=== PATIENT | female | born 1950 | race Caucasian/White ===

== ENCOUNTER 2017-07-31 08:01 | Inpatient (IN) | payer MEDICAID ==
[2017-07-31] MEDS ORDERED: OLANZapine DISINTEGR 10 MG TAB PO PRN (11:32)
[2017-07-31] MEDS ORDERED: MAG HYDROX/AL HYDROX/SIMETH 30 ML UDCUP PO PRN (11:32)
--- NOTE | 2017-07-31 15:12 | BAPA ---
[f rep st] ADMISSION PSYCHIATRIC ASSESSMENT DATE OF SERVICE: 07/31/2017 CHIEF COMPLAINT: "I don't know why I am here, but I'm glad it is not as cold." HISTORY OF PRESENT ILLNESS: The patient is a 66-year-old female with a history of bipolar disorder. She was admitted through a rather circuitous route, having left her home at an [facility] and going to the emergency department. The timeline is very unclear to me, but she ifeanyi arently had a seizure at some time in the recent past, followed by an acute mental status change caus ed either by the epileptic event or medications used to treat it, [facility], and then transferred to hospice. She then was returned from hospice to the emergency department due to psychiatric complaints. She has a history of bipolar disorder in past, has had psychotic episodes, primarily depressive, and they were concerned that this is what w as occurring now. Also apparently acknowledged that she was not a hospice patient and that this was a mistake. She was making numerous what appeared to be delusional statements. These included believ ing that she was at a "research place" either at the hospice or at the hospital. She also stated stephanie t God and the Bruxie are waiting for her and that she herself was God. She stated that carmen childs was " with poison babies" and that she wanted them removed. She also believed that people were trying to attack her and perhaps detonate bombs around her. She in the past has been aggressive physically with staff during these episodes, per her 's report, but she was generally pleasan t and cooperative there and has been with us so far here. To me today she states that she does not k now why she was taken to the hospital and does not remember many aspects of the situation. She state s that she remembers being very cold and that they were lying to her, saying that the heat was on, bu t she could see the switch was in air conditioning mode. She believes they may have been trying to k ill her. She states that she believes she is on a mission for the Bruxie, but is not spec [facility] about what this might be. She does not believe she has any psychiatric problems and states she has been stable on her medications for some time, including the Depakote, but that she has not been t aking enough because "I take a surprisingly high amount." She again was pleasant and cooperative wit h me, though not able to really give any factual information. She is agreeable to be back on the Dep akote and stated that she felt this was the best medication for her. PAST PSYCHIATRIC HISTORY: The patient states that she has been on Depakote "for 50 years." She ofte n uses the timeframe of 50 years to answer many questions, seemingly to mean a long time. She cannot remember the names of medicine she has been on before, nor can she remember who prescribes her medic brian at this time. She believes that "they just send them to the home and I get them." [facility] Crisis Team reported that she had been treated for psychosis and PTSD in the past, and that she has been treated at [facility] since 2011. They reported that she spring s been on multiple different antipsychotics over the years, but has not been seen since March. The staff at the hospice indicated that they noticed that she had been agitated, delusional, an d was not sleeping. ALLERGIES: No known medical allergies. CURRENT MEDICATIONS: Include enteric-coated aspirin 81 mg daily, carvedilol 6.25 mg daily, Plavix 75 mg daily, Depakote ER 1250 mg at h.s., Pepcid 20 mg twice daily, lisinopril 5 mg daily, Senokot 1 da kaylah, and spironolactone 25 mg daily. PAST MEDICAL HISTORY: Significant apparently for congestive heart failure, hypertension, and possibl e epilepsy. She also has a pacemaker, chronic urinary incontinence, and some cellulitis. SOCIAL HISTORY: The patient states she has been for over 50 years. She states that her husb and "is a stupid man and a drunk." She states that they did not have any children "because I did not want to spread his genes." She states that her has been a heavy drinker throughout their ma rriage and that he is currently residing "in the drunk tank." She states that she had to go to a [facility] home after her heart problems and that her "drank away our house" and became homeless. She reports not liking living in what she describes as a "jail" and that her is only allowed to visit and does not live there with her. Other information indicated that they both live t ren[place] in an assisted living facility. 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 FAMILY HISTORY: The patient states she has an uncle with history of depression and epilepsy. The pa nicolas's mother had depression. Her father was alcoholic. ADMISSION LABORATORY: No additional labs were drawn. Labs from [facility] were review ed with me via telephone and no significant abnormalities were noted. MENTAL STATUS EXAMINATION: Reveals a small, frail-appearing female who appears older than her stated age. She is sitting in a wheelchair, wearing hospital garb. She interacts well, maintain ing good eye contact, and displaying a calm and pleasant demeanor. Her affect is euthymic, stable an d appropriate. Her mood is described as "fine." Her thought process is linear at times, but tangent ial at others. Her thought content reveals grandiose and some paranoid delusions. She states that s he is on a mission for [employer]ub [employer] and also some "top general." Other delusional statement s are mentioned above. She denies any auditory, visual or tactile hallucinations. She is alert and oriented to person, place, and situation, though does not know the date or time. She denies any thou ghts of suicide, homicide, or violence. Her insight and judgment appear to be impaired. IMPRESSION: The patient is a pleasant 66-year-old female who presents at this time on segal sfer from [facility] emergency department on an M1 hold after having been taken there from [facility]. The circumstances of her going to hospice are mentioned above, which are very, very strange. Re gardless, she appears to be clear and has no evidence currently of delirium. She is delusional, but at least pleasantly so and is not aggressive. She is agreeable to continuing to take her Depakote an d I will supplement this with a small amount of Zyprexa to hopefully address her delusional processes , and hasten the response of the natasha to the Depakote. PLAN: 1. Admit to the [facility] inpatient unit on an M1 hold. 2. Make medication adjustments as above. 3. Engage in individual, group, and milieu psychotherapies to provide better and clear understanding of her underlying condition and personality. 4. We will maintain on safety precautions as she has been very pleasant and cooperative and showing no signs of aggression at this time. 5. Estimated length of stay is 5-7 days. 6. /[id number]/MODL
[2017-07-31] MEDS: CARVEDILOL 6.25 MG TAB PO SCH (17:40)
[2017-07-31] MEDS: DIVALPROEX ER 250 MG TAB PO SCH (20:07)
--- NOTE | 2017-07-31 20:07 | WOCRNPDOC ---
WOCRN Advanced Assessment Note - Skin Integrity Problem, Advanced Assess Left Heel Dressing Type: Allevyn Life Dressing Description: Clean/Dry, Intact Exudate Amount: Scant Exudate Color: Reddish/Yellow Exudate Characteristic(s): Serosanguinous Integumentary Issue Intervention: Visualized Under Dressing Kena Wound Tissue: Calloused Kena Wound Swelling: None Wound Bed Color: Red Wound Bed Constitution: Red/Bad Axe - Non Granular Tissue, De-roofed Serous Blister Site Measurement - Head-to-Toe Length X Width X Depth (cm): 0.8cmx0.7cmx0.1cm Skin Integrity Problem Comment: Discrete, circular partial-thikness wound on posterior aspect of L heel, appearance consistent w/ de-roofed blister. Wound bed is red, non-granulating tissue. Callous and friable skin periwound, no erythema or swelling. Continue w/ Allevyn Life dressing, w/ Silvasorb wound gel. Left Anterior Ankle Dressing Type: Allevyn Life Dressing Description: Intact Exudate Amount: Minimal Exudate Color: Reddish/Yellow Exudate Characteristic(s): Serosanguinous Integumentary Issue Intervention: Visualized Under Dressing Kena Wound Tissue: Erythema, Swollen Kena Wound Swelling: Moderate Wound Bed Color: Red, Yellow Wound Bed Constitution: Red/Bad Axe - Non Granular Tissue (40%), Loose Slough (60%) Wound Edges: Irregular Site Odor: None Site Measurement - Head-to-Toe Length X Width X Depth (cm): 1cmx2.5cmx0.1cm Skin Integrity Problem Comment: Wound on the anterior aspect of L ankle, at talocrural joint. Patient does not know the etiology of this wound. Presently 60 % loose slough, 40% non-granulating tissue. Erythema and swelling periwound, w/ +2 pitting edema in this extremity. Patient does have edema in other leg as well (+1, pitting), but this extremity is more edematous. Will initiate dressing w/ honey tomorrow to promote autolysis of necrotic tissue. Nursing should continue to monitor for s/sx of cellulitis in surrounding tissues, including increased swelling and erythema, reports of increased pain, and purulent discharge from wound. Recommend elevating both lower legs above heart level using pillows when patient in bed.
[2017-07-31] MEDS: FAMOTIDINE 20 MG TAB PO SCH (20:08)
--- NOTE | 2017-07-31 20:19 | BCON ---
[f rep st] BEHAVIORAL HEALTH CONSULTATION INTERNAL MEDICINE CONSULTATION DATE OF CONSULTATION: 07/31/2017 REFERRING PHYSICIAN: Dr. Guajardo REASON FOR REFERRAL: Medical clearance for inpatient behavioral health stay. HISTORY OF PRESENT ILLNESS: This patient spent several days in the emergency department of [facility], where she was sent from [facility] for behavioral disturbance. She was agitated, and also the emergency department notes report altered mental status. She has also recently had a seizure, though it is unclear from notes exactly when this was. Emergency department evaluation included laboratory studies, and valproic acid was undetectable in her serum initially, but subsequently, after being treated with her regular prescription, her valproic acid level became therapeutic. She had been apparently erroneously placed in hospice and was agitated at the [facility] in [place], which prompted either the initial or subsequent emergency department visit. Eventually, she was evaluated by the mental health team and sent to [facility] for further psychiatric care. The [facility] was refusing readmission for her. PAST MEDICAL HISTORY: 1. Congestive heart failure. 2. Anxiety. 3. Bipolar disorder. 4. Dementia. 5. Dyslipidemia. 6. MRSA. 7. Seizure disorder. PAST SURGICAL HISTORY: She has had pacemaker placement. MEDICATIONS: Prior to admission: 1. Aspirin 81 mg p.o. q. day. 2. Carvedilol 6.25 mg b.i.d. 3. Clopidogrel 75 mg p.o. q. day. 4. Divalproex 1250 mg p.o. q.h.s. 5. Famotidine 20 mg p.o. b.i.d. 6. Probiotic 1 p.o. q. day. 7. Lisinopril 5 mg p.o. q. day. 8. Senna/docusate 1 p.o. q. day. 9. Spironolactone 25 mg p.o. q. day. SOCIAL HISTORY: She is a smoker. She was living at [facility] and was briefly under the care of hospice. FAMILY HISTORY: Noncontributory. REVIEW OF SYSTEMS: She reports that she feels short of breath. She has not been sleeping well, but she thinks she will sleep well tonight. She denies cough. She denies fever or chills. She denies chest pain or palpitations. She denies nausea, vomiting, constipation or diarrhea and has a good appetite. She has some swelling in her legs. She has some pain around the skin ulceration on her left ankle. She typically ambulates with a walker. She denies snoring. Otherwise, a 10-point review of systems is negative. PHYSICAL EXAMINATION: VITAL SIGNS: Blood pressure is 143/68. Heart rate is 90. Respiratory rate is 14. Oxygen saturation is 99% on room air. Her weight is 62.6 kg for a body mass index of 24.4. GENERAL: This is an elderly lady, somewhat unkempt, dressed in a hospital robe, sitting in a chair, cooperative and in no acute distress. HEENT: Extraocular movements are intact. Pupils are equal, round and reactive to light. Mucous membranes are moist. Dentition is in poor condition. She has a moderately crowded airway, Mallampati class 3. NECK: Supple. HEART: There is a regular rate and rhythm with no murmurs, rubs, or gallops. There is jugular venous distention. There is 1+ edema bilaterally to the lower extremities. LUNGS: Clear to auscultation bilaterally. ABDOMEN: Soft, nontender, nondistended, with normoactive bowel sounds. EXTREMITIES: There is no cyanosis or clubbing. Her left great toe crosses over her left 2nd toe. Radial pulses are 2+ bilaterally. Pedal pulses are not detectable. SKIN: There is approximately a 2 x 3 triangular-shaped area of ulceration on the left anterior ankle. There is mild surrounding erythema. There is no purulence. There is scant serosanguineous discharge on the bandage. There is a very small ulceration on the left heel, again with serosanguineous drainage on the bandage. There is no purulence. NEUROLOGIC: She is alert and oriented x3. Cranial nerves 2-12 are grossly intact. There is no focal weakness. Sensation is intact to light touch. Deep tendon reflexes are 2+ bilaterally at the biceps, patellar, and Achilles tendons. She is able to arise from the chair by pushing on the arms of the chair and ambulates with a wide-based gait using a front-wheeled walker. Time to get up and go is approximately 30 seconds. LABORATORY STUDIES: From the emergency department in [place]: On 07/30, serum valproic acid level was 65.8. Urine drug screen was positive for opiates but otherwise negative for any substances of abuse. Urinalysis showed 6-10 white blood cells, 1+ bacteria, and 6-10 squamous epithelial cells; there were small leukocyte esterase and trace blood. Acetaminophen level was undetectable. TSH was normal at 2.05. Valproic acid level was initially undetectable on 2017 and, subsequently, therapeutic on 07/30/2017. Salicylate level was nontoxic at 1.2. Serum chemistry revealed normal renal function and electrolytes. Glucose was slightly elevated at 105, but this was likely nonfasting. Liver function tests showed a low albumin at 3.1 and, otherwise, were within normal limits. CBC showed mild anemia with a hemoglobin of 11.7 and a hematocrit of 36.1, MCV was normal at 93, RDW was elevated, platelet count was normal at 2.77. ASSESSMENT AND RECOMMENDATIONS: 1. Mental health issues with recent agitation and altered mental status, pending further evaluation and management per Psychiatry and the mental health team. 2. Congestive heart failure appears to be compensated, not requiring any oxygen. Would continue current medications with carvedilol, spironolactone, and lisinopril. 3. Coronary artery disease. She reports a history of myocardial infarction x4. Continue aspirin. 4. Peripheral vascular disease with absent pulses bilaterally in her feet. Would continue clopidogrel, as well as the aspirin. 5. Skin ulcers on the left foot. Unclear whether this is an abrasion versus an arterial ulcer. It is somewhat painful. It does not appear infected. For now, agree with the Allevyn dressings, and she will be seen by the wound care nurse today. 6. Hypertension appears to be adequately controlled. 7. Anemia, possibly of chronic disease, possibly nutritional with a low albumin. If she is to remain on the inpatient behavioral health unit for days into weeks, it would be worthwhile to follow up. Otherwise, she can follow up as an outpatient. If repeat labs are done here, would add an iron panel. 8. Gait disturbance and fall risk. Fall risk is elevated due to her very slow time to get up and go test. Physical therapy evaluation has been ordered, which is appropriate. 9. Question of dementia. She is alert and oriented, though she appears somewhat delusional and is a poor historian, in particular discussing that the or first assist registered nurse who shocked and restarted her heart was a general ( unclear whether this might be the case or not). There is a report in the paperwork from the outside hospital of a [facility] mental status test of , which is in the dementia range; however, she also might have been delirious, having had a seizure and with questionable compliance with her medications at that time. Consider further neuropsychological testing either as an outpatient or through Speech Therapy if she appears to have significant cognitive impairment while she is on the unit. I see no medical contraindications to this patient's continued stay on the inpatient behavioral health unit or to any psychiatric medications or procedures. Thank you very much for including me in the care of this patient, and please do not hesitate to contact me or the hospitalist service should there be need for further medical evaluation. /[id number]/MODL MTDD
[2017-07-31] MEDS: LORazepam 0.5 MG TAB PO PRN (20:20)
[2017-08-01] MEDS: LORazepam 0.5 MG TAB PO PRN ×2 (02:21→21:04)
[2017-08-01] MEDS: FAMOTIDINE 20 MG TAB PO SCH ×2 (08:21→21:05)
[2017-08-01] MEDS: ASPIRIN EC 81 MG TAB PO SCH (08:21)
[2017-08-01] MEDS: SPIRONOLACTONE 25 MG TAB PO SCH (08:21)
[2017-08-01] MEDS: SENNOSIDES/DOCUSATE SODIUM TAB PO SCH (08:21)
[2017-08-01] MEDS: CLOPIDOGREL BISULFATE 75 MG TAB PO SCH (08:21)
[2017-08-01] MEDS: CARVEDILOL 6.25 MG TAB PO SCH ×2 (08:21→17:13)
[2017-08-01] MEDS: LISINOPRIL 5 MG TAB PO SCH (08:21)
--- NOTE | 2017-08-01 14:19 | SOAPPROG ---
SOAP Progress Note Assessment/Plan: Assessment: Plan: 08/01/17 14:17 Psychosis: Remains delusional. Will start on scheduled Zyprexa. Subjective: Pt seen, discussed with staff. Did not sleep at all last night. Was reported to be more irritable last night. She states she was cold and that the mattress was too hard. Slept about two hours this morning on the couch in the day room. Compliant with treatments and medications though is resistant to wound care. Objective: Vital Signs Temp Pulse Resp BP Pulse Ox 36.4 C 103 H 17 120/56 L 96 08/01/17 06:00 08/01/17 06:00 08/01/17 06:00 08/01/17 06:00 08/01/17 06:00 - Time Spent With Patient Time Spent With Patient: 25" ICD10 Worksheet Patient Problems: Problems Problem Status Onset Bipolar I disorder, most recent episode manic, severe with psychotic features Acute - ICD10 Problem Qualifiers (1) Bipolar I disorder, most recent episode manic, severe with psychotic features
[2017-08-01] MEDS: DIVALPROEX ER 250 MG TAB PO SCH (21:05)
[2017-08-02] MEDS: LORazepam 0.5 MG TAB PO PRN ×2 (04:17→20:45)
[2017-08-02] MEDS: CLOPIDOGREL BISULFATE 75 MG TAB PO SCH (09:02)
[2017-08-02] MEDS: ASPIRIN EC 81 MG TAB PO SCH (09:02)
[2017-08-02] MEDS: CARVEDILOL 6.25 MG TAB PO SCH ×2 (09:02→17:12)
[2017-08-02] MEDS: SPIRONOLACTONE 25 MG TAB PO SCH (09:02)
[2017-08-02] MEDS: FAMOTIDINE 20 MG TAB PO SCH ×2 (09:02→20:38)
[2017-08-02] MEDS: LISINOPRIL 5 MG TAB PO SCH (09:03)
[2017-08-02] MEDS: SENNOSIDES/DOCUSATE SODIUM TAB PO SCH (10:52)
--- NOTE | 2017-08-02 14:06 | SOAPPROG ---
SOAP Progress Note Assessment/Plan: Assessment: Plan: 08/01/17 14:17 Psychosis: Remains delusional. Will start on scheduled Zyprexa. 08/02/17 14:06 Psychosis/Bipolar D/o: Continues to sleep poorly. Need to see this improved if overall clinical picture is to improve. Will start scheduled Zyprexa at HS. Subjective: Pt seen, discussed with staff. Reports feeling "cold and tired." Did not sleep again last night, up in the day room mostly. Remains intermittently irritable, disorganized. Continues to refuse to sleep in bed due to c/o of mattress being too hard and the sheets somehow pulling at her clothes. Objective: Vital Signs Temp Pulse Resp BP Pulse Ox 36.4 C 98 14 120/58 L 99 08/02/17 06:00 08/02/17 09:02 08/02/17 06:00 08/02/17 09:03 08/02/17 06:00 MSE: Calm, coop. Noted to be sleeping in the day room, slumped over on the couch. Easily awakened. Recognizes me. Pleasant and interactive. Affect is constricted, stable. Mood is "bad." TP linear for brief periods, then derails. 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 - Time Spent With Patient Time Spent With Patient: 15" ICD10 Worksheet Patient Problems: Problems Problem Status Onset Bipolar I disorder, most recent episode manic, severe with psychotic features Acute - ICD10 Problem Qualifiers (1) Bipolar I disorder, most recent episode manic, severe with psychotic features
[2017-08-02] MEDS: DIVALPROEX ER 250 MG TAB PO SCH (20:38)
[2017-08-02] MEDS ORDERED: OLANZapine DISINTEGR 5 MG TAB PO SCH (21:00)
[2017-08-03] MEDS: OLANZapine DISINTEGR 5 MG TAB PO PRN (02:08)
[2017-08-03] MEDS: LORazepam 0.5 MG TAB PO PRN ×3 (03:31→21:21)
[2017-08-03] MEDS: FAMOTIDINE 20 MG TAB PO SCH ×2 (09:07→20:30)
[2017-08-03] MEDS: ASPIRIN EC 81 MG TAB PO SCH (09:07)
[2017-08-03] MEDS: LISINOPRIL 5 MG TAB PO SCH (09:07)
[2017-08-03] MEDS: CLOPIDOGREL BISULFATE 75 MG TAB PO SCH (09:07)
[2017-08-03] MEDS: SPIRONOLACTONE 25 MG TAB PO SCH (09:07)
[2017-08-03] MEDS: CARVEDILOL 6.25 MG TAB PO SCH ×2 (09:08→17:35)
[2017-08-03] MEDS: SENNOSIDES/DOCUSATE SODIUM TAB PO SCH (09:16)
--- NOTE | 2017-08-03 15:37 | SOAPPROG ---
SOAP Progress Note Assessment/Plan: Assessment: Plan: 08/01/17 14:17 Psychosis: Remains delusional. Will start on scheduled Zyprexa. 08/02/17 14:06 Psychosis/Bipolar D/o: Continues to sleep poorly. Need to see this improved if overall clinical picture is to improve. Will start scheduled Zyprexa at HS. 08/03/17 15:41 Psychosis/Bipolar D/o: No inroads on the sleep issue. Will CCM inc: Zyprexa and VPA. Try air mattress. Subjective: Pt seen, discussed with staff. Continues to refuse to sleep in her room and, in fact, hasn't slept more than two hours since arriving. She agrees to at least try to lay down in her bed if we can get her an air mattress. Objective: Vital Signs Temp Pulse Resp BP Pulse Ox 36.3 C 96 16 121/58 H 97 08/03/17 06:00 08/03/17 09:08 08/03/17 06:00 08/03/17 09:08 08/03/17 06:00 MSE: Tense, guarded. Interacts appropriately with good eye contact, pleasant demeanor. Affect is constricted, stable, somewhat irritable. Mood is "not good." TP generally linear. TC reveals continued paranoid and grandiose delusions. - Time Spent With Patient Time Spent With Patient: 15" ICD10 Worksheet Patient Problems: Problems Problem Status Onset Bipolar I disorder, most recent episode manic, severe with psychotic features Acute - ICD10 Problem Qualifiers (1) Bipolar I disorder, most recent episode manic, severe with psychotic features
[2017-08-03] MEDS: DIVALPROEX ER 250 MG TAB PO SCH (20:30)
[2017-08-03] MEDS: OLANZapine DISINTEGR 5 MG TAB PO SCH (20:31)
[2017-08-04] MEDS: OLANZapine DISINTEGR 5 MG TAB PO PRN ×2 (01:09→23:25)
[2017-08-04] MEDS: ACETAMINOPHEN 325 MG TAB PO PRN ×2 (01:09→23:25)
[2017-08-04] MEDS: LORazepam 0.5 MG TAB PO PRN ×2 (03:08→23:26)
[2017-08-04] MEDS: LISINOPRIL 5 MG TAB PO SCH (08:27)
[2017-08-04] MEDS: FAMOTIDINE 20 MG TAB PO SCH ×2 (08:42→20:26)
[2017-08-04] MEDS: CLOPIDOGREL BISULFATE 75 MG TAB PO SCH (08:42)
[2017-08-04] MEDS: CARVEDILOL 6.25 MG TAB PO SCH ×2 (08:43→18:15)
[2017-08-04] MEDS: ASPIRIN EC 81 MG TAB PO SCH (08:50)
[2017-08-04] MEDS: SPIRONOLACTONE 25 MG TAB PO SCH (08:51)
--- NOTE | 2017-08-04 16:08 | SOAPPROG ---
SOAP Progress Note Assessment/Plan: Assessment: 66yo CF with long hx BMD, MRE manic/psychotic, also with chronic medical problems 08/04/17 16:05 slept 1hr last night. had transferred to ER after MN after fall, sustained lip lac and did not require sutures. pt states she is "fine now". attributed fall to her bed being "so high" and she had trouble getting out of bed to her walker, slipped despite wearing hospital socks. 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 Wants to return to [facility] and have more Depakote. states still can't sleep, but thinks meds helped a little. received prn Ativan and prn zyprexa earlier at night. reports hx of nocturia, and staff report occasional incontinence. denied s/e to zyprexa or depakote. denied any sxs suggestive of orthostasis. staff report pt hydrating well. conversant. mildly irritable. fair eye contact. swollen upper lip with some dried blood. mood "fine now", denied feeling depressed. denied any ah, but reports +VH of "a few scary faces at night, monster faces", + paranoia regarding unit as noted. did not appear responding to internal stim. i/j impaired. a/p: cont current meds incl VPA, Zyprexa, prn ativan check UA, r/o UTI instructed pt to avoid HS fluid intake now without air mattress, continues on fall risk precautions no hospital beds allowed on unit f/u with PT for recommendations Objective: Vital Signs Temp Pulse Resp BP Pulse Ox 36.3 C 105 H 10 L 129/73 H 100 08/04/17 06:00 08/04/17 08:49 08/04/17 08:49 08/04/17 08:49 08/04/17 08:49 - Time Spent With Patient Time Spent With Patient: 35min - Pending Discharge Pending Discharge Within 24 Hours: No Pending Discharge Within 48 Hours: No ICD10 Worksheet Patient Problems: Problems Problem Status Onset Bipolar I disorder, most recent episode manic, severe with psychotic features Acute
[2017-08-04] MEDS: OLANZapine DISINTEGR 5 MG TAB PO SCH (20:25)
[2017-08-04] MEDS: DIVALPROEX ER 250 MG TAB PO SCH (20:25)
[2017-08-05] MEDS: SENNOSIDES/DOCUSATE SODIUM TAB PO PRN (00:57)
[2017-08-05] MEDS: MAGNESIUM HYDROXIDE 30 ML UDCUP PO PRN (02:16)
[2017-08-05] MEDS: LORazepam 0.5 MG TAB PO PRN ×2 (05:24→22:22)
[2017-08-05] MEDS: OLANZapine DISINTEGR 5 MG TAB PO PRN (05:25)
[2017-08-05] MEDS: CLOPIDOGREL BISULFATE 75 MG TAB PO SCH (09:42)
[2017-08-05] MEDS: CARVEDILOL 6.25 MG TAB PO SCH ×3 (09:42→17:20)
[2017-08-05] MEDS: FAMOTIDINE 20 MG TAB PO SCH ×2 (09:42→20:48)
[2017-08-05] MEDS: SPIRONOLACTONE 25 MG TAB PO SCH (09:43)
[2017-08-05] MEDS: LISINOPRIL 5 MG TAB PO SCH ×2 (09:44→09:51)
[2017-08-05] MEDS: ASPIRIN EC 81 MG TAB PO SCH (09:54)
[2017-08-05] MEDS: ACETAMINOPHEN 325 MG TAB PO PRN (13:52)
[2017-08-05] MEDS: OLANZapine DISINTEGR 5 MG TAB PO SCH (20:48)
[2017-08-05] MEDS: DIVALPROEX ER 250 MG TAB PO SCH ×2 (20:48→20:54)
--- NOTE | 2017-08-05 21:40 | SOAPPROG ---
SOAP Progress Note Assessment/Plan: Assessment: 66yo CF with long hx BMD, MRE manic/psychotic, also with chronic medical problems 08/04/17 16:05 slept 1hr last night. had transferred to ER after MN after fall, sustained lip lac and did not require sutures. pt states she is "fine now". attributed fall to her bed being "so high" and she had trouble getting out of bed to her walker, slipped despite wearing hospital socks. 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 Wants to return to [facility] and have more Depakote. states still can't sleep, but thinks meds helped a little. received prn Ativan and prn zyprexa earlier at night. reports hx of nocturia, and staff report occasional incontinence. denied s/e to zyprexa or depakote. denied any sxs suggestive of orthostasis. staff report pt hydrating well. conversant. mildly irritable. fair eye contact. swollen upper lip with some dried blood. mood "fine now", denied feeling depressed. denied any ah, but reports +VH of "a few scary faces at night, monster faces", + paranoia regarding unit as noted. did not appear responding to internal stim. i/j impaired. a/p: cont current meds incl VPA, Zyprexa, prn ativan check UA, r/o UTI instructed pt to avoid HS fluid intake now without air mattress, continues on fall risk precautions no hospital beds allowed on unit f/u with PT for recommendations 08/05/17 19:21 slept 1.5hr incr irritable today per staff. On eval, asks for Risperdal b/c was on this since age 15, and less ativan, and wants 4mg Trilafon. States is and will refuse Depakote b/c it causes her to see "pictures in my mind of ugly, scary faces" to her left, and "block of light" on her right, and "crawling up the wall" sensation. Also c/o "hard bed, cold room ". Denied any other physical complaints. RLE swollen but per staff, wounds appearing improved and RLE has been larger than LLE at baseline, but both legs seem more edematous over past couple of days since has been without elevating legs in bed. Pt denied any LE pain No urinary incont reported today per staff. UA noted with 3+LE. Lab reports urine about 24hr old and ideally recheck to have accurate culture since not part of original order. Will recheck UA w/culture if indicated. Atty visited yesterday. Pt remains on 1:1 for safety/fall risk. Pt has been taking VPA, despite her reporting she will refuse. Cont with Zyprexa and prns. Will leave zyprexa at 10mg since on this dose only since 08/03. has prn available. If not helpful for mood/sleep, coould further increase or consider change, pt mentioned risperdal, also concerns for potential of incr weight on zyprexa Staff obtained W/C from rehab with leg extenders to help pt with elevating legs , altho will need ideally to do so above level of heart while resting in bed. Chem with Na 132. drinking a lot of fluid and urinating freq. Will f/u and recheck in AM to check trend. Will request hospitalist f/u w/pt tomorrow to reassess BLE and make recs regarding r/o UTI Objective: Vital Signs Temp Pulse Resp BP Pulse Ox 36.6 C 103 H 16 107/59 L 99 08/05/17 16:00 08/05/17 16:00 08/05/17 16:00 08/05/17 16:00 08/05/17 16:00 Laboratory Results 08/05/17 06:00 - Time Spent With Patient Time Spent With Patient: 20min - Pending Discharge Pending Discharge Within 24 Hours: No Pending Discharge Within 48 Hours: No ICD10 Worksheet Patient Problems: Problems Problem Status Onset Bipolar I disorder, most recent episode manic, severe with psychotic features Acute
[2017-08-05] MEDS ORDERED: OLANZapine 5 MG TAB PO ONE (21:47)
[2017-08-06] MEDS: ACETAMINOPHEN 325 MG TAB PO PRN ×3 (00:40→18:39)
[2017-08-06] MEDS: OLANZapine DISINTEGR 5 MG TAB PO PRN ×2 (02:34→06:46)
[2017-08-06] MEDS: LORazepam 0.5 MG TAB PO PRN (06:47)
[2017-08-06] MEDS: FAMOTIDINE 20 MG TAB PO SCH ×2 (09:02→19:49)
[2017-08-06] MEDS: SPIRONOLACTONE 25 MG TAB PO SCH (09:02)
[2017-08-06] MEDS: CLOPIDOGREL BISULFATE 75 MG TAB PO SCH (09:02)
[2017-08-06] MEDS: CARVEDILOL 6.25 MG TAB PO SCH ×2 (09:02→18:30)
[2017-08-06] MEDS: ASPIRIN EC 81 MG TAB PO SCH (09:03)
[2017-08-06] MEDS: LISINOPRIL 5 MG TAB PO SCH (09:03)
--- NOTE | 2017-08-06 13:23 | SOAPPROG ---
SOAP Progress Note Assessment/Plan: Assessment: Plan: 08/01/17 14:17 Psychosis: Remains delusional. Will start on scheduled Zyprexa. 08/02/17 14:06 Psychosis/Bipolar D/o: Continues to sleep poorly. Need to see this improved if overall clinical picture is to improve. Will start scheduled Zyprexa at HS. 08/03/17 15:41 Psychosis/Bipolar D/o: No inroads on the sleep issue. Will [facility] inc: Zyprexa and VPA. Try air mattress. 08/06/17 13:25 Psychosis/Bipolar D/o: Largely the same. Will increase Zyprexa to 15mg. Hope to see sleep come around as a harbinger of mood stabilization. Pt asks to change to Risperdal and perphenazine. These are not as effective as antimanics , so will stay with Zyprexa for now. Will ask Dr. Bustillos to look in on leg. Wounds appear better, but her edema is increasing. Subjective: Pt seen, discussed with staff. Reports feeling "mad" that she is in the hospital. States, "I could sleep just fine if I was at home." I reminded her that her lack of sleep was a primary reason she was admitted, but she denies this. She continues to c/o uncomfortable bed. Sleeping < 3 hours per night. C /o pain in her right leg and foot. Staff notes that she continues to compulsively pick at her wounds. She also fell out of bed over the WE and suffered an injury to her upper lip. This was evaluated in the ED and is being managed supportively. She has been noted to pick at this as well causing it to bleed. She is now on 1:1 due to the picking and her insistence on getting out of her chair abruptly, increasing her fall risk. Remains compliant with meds. Continues to resist elevating legs. Objective: Vital Signs Temp Pulse Resp BP Pulse Ox 36.6 C 110 H 12 115/62 99 08/05/17 16:00 08/06/17 09:02 08/06/17 08:58 08/06/17 09:03 08/06/17 08:58 Laboratory Results 08/06/17 05:45 MSE: Poorly groomed, calm, coop. Affect is constricted, though she does smile appropriately at times. Her mood is "bad." TP is generally linear. TC reveals ongoing paranoia that she is being monitored by the [facility] and several male patients are imposters sent there to [place] her. Also continues to voice hyperreligious delusions. - Time Spent With Patient Time Spent With Patient: 25" ICD10 Worksheet Patient Problems: Problems Problem Status Onset Bipolar I disorder, most recent episode manic, severe with psychotic features Acute - ICD10 Problem Qualifiers (1) Bipolar I disorder, most recent episode manic, severe with psychotic features
--- NOTE | 2017-08-06 13:48 | SOAPPROG ---
SOAP Progress Note Assessment/Plan: Assessment: 1. Wound left anterior ankle. Healing. Continue current dressings. If she is intolerant of the tape on the even bandage, changed to a nonstick dressing held in place with Kerlix. Continue honey to wound as per instructions of wound care nurse. 2. Edema and CHF. She also had tachycardia and BUN/creatinine ratio is greater 20 and higher than it was several days ago implying possible dehydration. Added on BNP as well as LFTs to labs that were drawn today. 3. Hyperkalemia, minor. Unclear etiology though it might be related to Fab inhibitor as well as spironolactone. Await labs. Most likely will simply recheck in the morning. 08/06/17 13:44 Subjective: Follow-up on wound on the left anterior ankle. She says she removed her bandages because the tape was bothering her. Staff reports that she was digging at the wound with finger. Objective: Vital Signs Temp Pulse Resp BP Pulse Ox 36.6 C 110 H 12 115/62 99 08/05/17 16:00 08/06/17 09:02 08/06/17 08:58 08/06/17 09:03 08/06/17 08:58 Laboratory Results 08/06/17 05:45 Physical Exam - Physical Exam General Appearance: WD/WN, alert, no apparent distress Respiratory: normal breath sounds, No crackles, No rhonchi, No wheezing Cardiac/Chest: regular rate, rhythm, edema (2+ bilateral lower extremities left greater than right, pretibial), No gallop, No JVD, No diastolic murmur, No systolic murmur Skin: other (Wound on left anterior ankle with healing around the edges. Continues to have open area with slough central approximately 1/2 by 1 cm. ) ICD10 Worksheet Patient Problems: Problems Problem Status Onset Bipolar I disorder, most recent episode manic, severe with psychotic features Acute
[2017-08-06] MEDS: DIVALPROEX ER 250 MG TAB PO SCH (19:49)
[2017-08-06] MEDS: OLANZapine DISINTEGR 10 MG TAB PO SCH (19:49)
[2017-08-06] MEDS ORDERED: OLANZapine 10 MG TAB PO SCH (21:00)
[2017-08-06] MEDS ORDERED: oxyCODONE IR 5 MG TAB PO ONE (21:15)
[2017-08-07] MEDS: FUROSEMIDE 20 MG TAB PO SCH (08:15)
[2017-08-07] MEDS: CARVEDILOL 6.25 MG TAB PO SCH ×2 (08:15→19:17)
[2017-08-07] MEDS: SPIRONOLACTONE 25 MG TAB PO SCH (08:15)
[2017-08-07] MEDS: CLOPIDOGREL BISULFATE 75 MG TAB PO SCH (08:15)
[2017-08-07] MEDS: ASPIRIN EC 81 MG TAB PO SCH (08:16)
[2017-08-07] MEDS: LISINOPRIL 5 MG TAB PO SCH (08:16)
[2017-08-07] MEDS: FAMOTIDINE 20 MG TAB PO SCH ×2 (08:16→19:15)
--- NOTE | 2017-08-07 14:21 | WOCRNPDOC ---
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 Per Dr. Bustillos's report, patient removed previous dressing because she didn't like the "tape" border. Modified dressing change order today so that there is nothing adherent: Therahoney gel, non-adherent pad, and stretch-net to secure. Hopefully this will work better for her. Wound RN will round again on to assess.
[2017-08-07] MEDS: OLANZapine DISINTEGR 10 MG TAB PO SCH (19:14)
[2017-08-07] MEDS: DIVALPROEX ER 250 MG TAB PO SCH (19:14)
[2017-08-07] MEDS: LORazepam 0.5 MG TAB PO PRN (21:34)
[2017-08-07] MEDS: OLANZapine DISINTEGR 5 MG TAB PO PRN (21:34)
--- NOTE | 2017-08-07 21:39 | SOAPPROG ---
SOAP Progress Note Assessment/Plan: Assessment: Plan: 08/01/17 14:17 Psychosis: Remains delusional. Will start on scheduled Zyprexa. 08/02/17 14:06 Psychosis/Bipolar D/o: Continues to sleep poorly. Need to see this improved if overall clinical picture is to improve. Will start scheduled Zyprexa at HS. 08/03/17 15:41 Psychosis/Bipolar D/o: No inroads on the sleep issue. Will [facility] inc: Zyprexa and VPA. Try air mattress. 08/06/17 13:25 Psychosis/Bipolar D/o: Largely the same. Will increase Zyprexa to 15mg. Hope to see sleep come around as a harbinger of mood stabilization. Pt asks to change to Risperdal and perphenazine. These are not as effective as antimanics , so will stay with Zyprexa for now. Will ask Dr. Bustillos to look in on leg. Wounds appear better, but her edema is increasing. 08/07/17 21:38 Psychosis/Idania: Improving. Sleep is stabilizing. Expect to see significant improvement in next 1-2 days. Medical condition is stable, though her labs indicate significant CHF. This is not a new finding but has bearing on her peripheral edema. I examined her LE's and noted them to be less edematous. Wounds look much better. [facility]. Subjective: Pt seen, discussed with staff. Wound care and Dr. Bustillos's notes reviewed and appreciated. Appropriately conversant with me today. States her leg pain is gone. Abnormal lab results noted. Compliant with meds. Slept >6 hours last night in her own bed. Objective: Vital Signs Temp Pulse Resp BP Pulse Ox 36.6 C 100 16 96/55 L 98 08/07/17 06:00 08/07/17 20:02 08/07/17 20:02 08/07/17 20:02 08/07/17 20:02 Microbiology 08/05/17 22:00 Urine Culture - Final Urine,Clean Catch Escherichia Coli Three [place] Types Laboratory Results 08/07/17 06:20 MSE: Poorly groomed, coop. Affect is blunted, stable, approp. Mood is "not too good." TP abbreviated, but linear and goal-directed to my questioning. TC reveals no mention of paranoid thoughts to me. A&Ox4. No evidence of delirium. - Time Spent With Patient Time Spent With Patient: 15" ICD10 Worksheet Patient Problems: Problems Problem Status Onset Bipolar I disorder, most recent episode manic, severe with psychotic features Acute - ICD10 Problem Qualifiers (1) Bipolar I disorder, most recent episode manic, severe with psychotic features
[2017-08-07] MEDS: ACETAMINOPHEN 325 MG TAB PO PRN (22:19)
[2017-08-08] MEDS: ACETAMINOPHEN 500 MG TAB PO PRN (00:52)
[2017-08-08] MEDS: MAGNESIUM HYDROXIDE 30 ML UDCUP PO PRN (02:35)
[2017-08-08] MEDS: OLANZapine DISINTEGR 5 MG TAB PO PRN ×2 (03:06→19:28)
[2017-08-08] MEDS: LORazepam 0.5 MG TAB PO PRN ×2 (04:35→19:28)
[2017-08-08] MEDS: CARVEDILOL 6.25 MG TAB PO SCH ×2 (08:25→18:23)
[2017-08-08] MEDS: SPIRONOLACTONE 25 MG TAB PO SCH (08:25)
[2017-08-08] MEDS: CLOPIDOGREL BISULFATE 75 MG TAB PO SCH (08:25)
[2017-08-08] MEDS: LISINOPRIL 5 MG TAB PO SCH (08:25)
[2017-08-08] MEDS: ASPIRIN EC 81 MG TAB PO SCH (08:25)
[2017-08-08] MEDS: FAMOTIDINE 20 MG TAB PO SCH ×2 (08:25→18:25)
[2017-08-08] MEDS: FUROSEMIDE 20 MG TAB PO SCH (08:26)
--- NOTE | 2017-08-08 12:44 | SOAPPROG ---
SOAP Progress Note Assessment/Plan: Assessment: Plan: 08/01/17 14:17 Psychosis: Remains delusional. Will start on scheduled Zyprexa. 08/02/17 14:06 Psychosis/Bipolar D/o: Continues to sleep poorly. Need to see this improved if overall clinical picture is to improve. Will start scheduled Zyprexa at HS. 08/03/17 15:41 Psychosis/Bipolar D/o: No inroads on the sleep issue. Will [facility] inc: Zyprexa and VPA. Try air mattress. 08/06/17 13:25 Psychosis/Bipolar D/o: Largely the same. Will increase Zyprexa to 15mg. Hope to see sleep come around as a harbinger of mood stabilization. Pt asks to change to Risperdal and perphenazine. These are not as effective as antimanics , so will stay with Zyprexa for now. Will ask Dr. Bustillos to look in on leg. Wounds appear better, but her edema is increasing. 08/07/17 21:38 Psychosis/Idania: Improving. Sleep is stabilizing. Expect to see significant improvement in next 1-2 days. Medical condition is stable, though her labs indicate significant CHF. This is not a new finding but has bearing on her peripheral edema. I examined her LE's and noted them to be less edematous. Wounds look much better. [facility]. 08/08/17 12:44 Psychosis: She is improving in terms of overall fluency of though and intensity of psychosis. She slept poorly due to urinary problems. Will honor her request to change to Risperdal due to previous good response. Will start at 2mg, monitor. Subjective: Pt seen, discussed with staff. Reports feeling "upset". States this is due to being in the hospital. Wants to go back to facility. Slept only one hour last night due to frequent urination. Dr. Bustillos reviewed UA and did not recommend abx. Noted by staff to be irritable this morning. She is quite pleasant with me, however. Discussed meds and she again asks to change to Risperdal. Also asks to be able to call and agrees to keep the conversation light. Objective: Vital Signs Temp Pulse Resp BP Pulse Ox 36.6 C 112 H 13 129/62 H 98 08/08/17 08:39 08/08/17 08:39 08/08/17 08:39 08/08/17 08:39 08/08/17 08:39 Microbiology 08/05/17 22:00 Urine Culture - Final Urine,Clean Catch Escherichia Coli Three [place] Types Laboratory Results 08/08/17 04:30 MSE: Poorly groomed, coop, interactive. Affect is blunted, stable, approp. Mood is "not good." TP linear. TC reveals no mention of paranoid thoughts. - Time Spent With Patient Time Spent With Patient: 25" ICD10 Worksheet Patient Problems: Problems Problem Status Onset Bipolar I disorder, most recent episode manic, severe with psychotic features Acute - ICD10 Problem Qualifiers (1) Bipolar I disorder, most recent episode manic, severe with psychotic features
[2017-08-08] MEDS: DIVALPROEX ER 250 MG TAB PO SCH (18:48)
[2017-08-08] MEDS ORDERED: RISPERIDONE 2 MG ODT TAB SL SCH (21:00)
[2017-08-09] MEDS: OLANZapine DISINTEGR 5 MG TAB PO PRN (00:13)
[2017-08-09] MEDS: ACETAMINOPHEN 500 MG TAB PO PRN (00:29)
[2017-08-09] MEDS: LORazepam 0.5 MG TAB PO PRN (03:50)
[2017-08-09] MEDS: CARVEDILOL 6.25 MG TAB PO SCH (08:11)
[2017-08-09] MEDS: LISINOPRIL 5 MG TAB PO SCH (08:11)
[2017-08-09] MEDS: FUROSEMIDE 20 MG TAB PO SCH (08:11)
[2017-08-09] MEDS: CLOPIDOGREL BISULFATE 75 MG TAB PO SCH (08:11)
[2017-08-09] MEDS: SPIRONOLACTONE 25 MG TAB PO SCH (08:12)
[2017-08-09] MEDS: ASPIRIN EC 81 MG TAB PO SCH (08:12)
[2017-08-09] MEDS: FAMOTIDINE 20 MG TAB PO SCH (08:12)
[2017-08-09] MEDS: SENNOSIDES/DOCUSATE SODIUM TAB PO PRN (08:12)
--- NOTE | 2017-08-09 09:44 | SOAPPROG ---
SOAP Progress Note Assessment/Plan: Assessment: 1. Wound left anterior ankle. Healing. Continue current dressings. If she is intolerant of the tape on the even bandage, changed to a nonstick dressing held in place with Kerlix. Continue honey to wound as per instructions of wound care nurse. 2. Edema and CHF. She also had tachycardia and BUN/creatinine ratio is greater 20 and higher than it was several days ago implying possible dehydration. Added on BNP as well as LFTs to labs that were drawn today. 3. Hyperkalemia, minor. Unclear etiology though it might be related to Fab inhibitor as well as spironolactone. Await labs. Most likely will simply recheck in the morning. 08/06/17 13:44 Developed hyponatremia on furosemide and K still high. No significant weight loss indicating minimal if any diuresis. Becoming more complicated than can be managed on [facility]. Recommend hospital admission for further evaluation and management. 08/09/17 09:43 Subjective: Reviewed labs, vitals and weight. Objective: Vital Signs Temp Pulse Resp BP Pulse Ox 36.3 C 110 H 14 129/63 H 97 08/09/17 00:00 08/09/17 00:00 08/09/17 00:00 08/09/17 00:00 08/09/17 00:00 Laboratory Results 08/09/17 05:45 ICD10 Worksheet Patient Problems: Problems Problem Status Onset Bipolar I disorder, most recent episode manic, severe with psychotic features Acute
[2017-08-09 09:49] VITALS: BP 100/63
== END 2017-08-09 10:29 | disposition home or self-care (01) | DRG 885 ==
LOC: BBEH 09:55
PROVIDERS: ADMIT Psychiatry & Neurology Psychiatry; ATTEND Psychiatry & Neurology Psychiatry
DX: F31.2 Bipolar disorder, current episode manic severe with psychotic features (principal); I50.9 Heart failure, unspecified; I25.10 Atherosclerotic heart disease of native coronary artery without angina pectoris; I73.9 Peripheral vascular disease, unspecified; I10 Essential (primary) hypertension; D63.8 Anemia in other chronic diseases classified elsewhere; R26.9 Unspecified abnormalities of gait and mobility; L97.321 Non-pressure chronic ulcer of left ankle limited to breakdown of skin; E87.5 Hyperkalemia; G40.909 Epilepsy, unspecified, not intractable, without status epilepticus; F03.90 Unspecified dementia, unspecified severity, without behavioral disturbance, psychotic disturbance, mood disturbance, and anxiety; F17.200 Nicotine dependence, unspecified, uncomplicated
CPT/HCPCS: 97161-GP; 97164-GP

== ENCOUNTER 2017-08-04 06:26 | Emergency (ER) | payer MEDICAID ==
[2017-08-04 06:35] VITALS: BP 149/88
--- NOTE | 2017-08-04 06:36 | EDPHY ---
H & P Time Seen by Provider: 08/04/17 06:30 HPI/ROS: Chief Complaint: Fall, mouth injury HPI: 66-year-old woman who is an inpatient at the [address] [place] [address]. Patient was getting out of bed this morning when she had a mechanical fall, striking her mouth on a hard surface. Patient sustained dental trauma and lip laceration was sent here for evaluation. Patient denies loss of consciousness. No neck pain. She takes Plavix but no other blood thinning medications. No nausea or vomiting. No headache. She has a history of very poor condition. There is some question whether she avulsed a tooth. They were unable to find on scene. The patient is currently in the process of being fitted for dentures. ROS: 10 point Review of Systems is negative except as noted in the HPI. Social History: No smoking, no alcohol, no recreational drug use Family History: non-contributory Physical Exam: Gen: Awake, Alert, Airway Intact HEENT: Head: Atraumatic Eyes: PERRLA, EOMI Ears: No hemotympanum Nose: No epistaxis Mouth: Patient has a through and through lip laceration on the upper lip. The external portions were only about 3 mm nonsuturable. Internal mucosal laceration is about 1.5 cm. There is no significant tissue loss. Patient has very poor dentition. There are fractures through her top to incisor is. There is also a fracture at the base of her right upper lateral incisor. There is no oxygen no bleeding. There are nontender. Nose no maxillary tenderness. No mandibular tenderness. Face: No deformity Neck: non-tender, no stepoff, Full ROM without pain Chest: non-tender, lungs CTA Heart: normal heart tones Abd: soft, non-tender, atraumatic Pelvis: non-tender, stable to AP and Lateral compression Back: atraumatic, no midline tenderness Ext: atramatic, full ROM Skin: no rash Neuro: CN II-XII intact, Strength 5/5 in all extremities, sensation intact in all extremities - Medical/Surgical History Hx Asthma: No Hx Chronic Respiratory Disease: No Hx Diabetes: No Hx Cardiac Disease: Yes Hx Renal Disease: No Hx Cirrhosis: No Hx Alcoholism: No Hx HIV/AIDS: No Hx Splenectomy or Spleen Trauma: No - Social History Smoking Status: Heavy smoker Constitutional: Initial Vital Signs Temperature (C) 36.6 C 08/04/17 06:28 Heart Rate 97 08/04/17 06:28 Respiratory Rate 18 08/04/17 06:28 Blood Pressure 149/88 H 08/04/17 06:28 O2 Sat (%) 100 08/04/17 06:28 O2 Delivery Mode Room Air Allergies/Adverse Reactions: No Allergies [NKDA] Allergy (Verified 07/31/17 11:32) Home Medications: Medication Instructions Recorded Aspirin EC [Aspirin EC 81 mg (*)] 81 mg PO DAILY 07/31/17 Carvedilol [Coreg (*)] 6.25 mg PO BIDMEAL 07/31/17 Clopidogrel Bisulfate [Plavix (*)] 75 mg PO DAILY 07/31/17 Divalproex ER [Depakote ER 250 MG 1,250 mg PO HS 07/31/17 (*)] Famotidine [Pepcid 20 MG (*)] 20 mg PO BID 07/31/17 Herbals/Supplements -Info Only 1 ea PO DAILY 07/31/17 Lisinopril [Zestril 5 mg (*)] 5 mg PO DAILY 07/31/17 Sennosides/Docusate Sodium 1 each PO DAILY 07/31/17 [Senokot-S (OTC)] Spironolactone [Aldactone 25 MG 25 mg PO DAILY 07/31/17 (*)] Medical Decision Making ED Course/Re-evaluation: 66-year-old woman with through and through lip laceration in dental trauma. There are no fully avulsed teeth. Patient has very poor dentition is currently in the process of being for dentures. She will need to see an oral surgeon as an outpatient but there is no acute indication at this time. Patient does have a through and through lip laceration. The external portion is very small and given the risk of infection I would not suture at this time. Internal laceration again does not need to be closed I anticipate should heal without difficulty. Patient is medically cleared for discharge back to [address] [place] [address]. She needs to follow up with Oral surgery as an outpatient. Departure - Departure Disposition: Home, Routine, Self-Care Clinical Impression: Lip laceration, Dental trauma Condition: Good Instructions: Acute Dental Trauma (ED), Laceration Without Closure (ED) Additional Instructions: Follow up with Oral surgery in 2-3 days for further evaluation. You may take ibuprofen or acetaminophen as needed for the pain. Return to the emergency department for increasing pain, redness, discharge, or any other concerns. Referrals: Keith Quiles DDS [Doctor of Dental Surgery] - As per Instructions
== END 2017-08-04 07:03 | disposition home or self-care (01) ==
LOC: EDBD → EDUNIT#
DX: S01.511A Laceration without foreign body of lip, initial encounter (principal); F17.200 Nicotine dependence, unspecified, uncomplicated; Z79.82 Long term (current) use of aspirin; W01.198A Fall on same level from slipping, tripping and stumbling with subsequent striking against other object, initial encounter

== ENCOUNTER 2017-08-09 10:51 | Inpatient (IN) | payer MEDICAID ==
[2017-08-09 11:40] LABS: PLATELET COUNT 369 10^3/uL (150-400)
--- NOTE | 2017-08-09 11:40 | EDPHY ---
H & P Time Seen by Provider: 08/09/17 11:05 HPI/ROS: CHIEF COMPLAINT: Hyponatremia HISTORY OF PRESENT ILLNESS: 66-year-old female with bipolar disorder, congestive heart failure and hypertension presents from [address] [place] [address] with abnormal labs. She originally presented to [facility] with acute natasha and was transferred to [address] [place] [address] for inpatient mental health care. This morning, labs revealed hyponatremia and hyperkalemia and she was sent to the emergency department for admission. She is taking spironolactone. Lasix was added yesterday. She denies headache or confusion. REVIEW OF SYSTEMS: Constitutional: No fever, no chills Eyes: No visual changes ENT: No sore throat Respiratory: No cough, no shortness of breath Cardiac: No chest pain Gastrointestinal: no vomiting, no abdominal pain Genitourinary: no dysuria Musculoskeletal: Ongoing open wound left lower extremity Skin: No rash Neurological: No headache, no numbness, no weakness Psychiatric: Manic, denies hallucinations Past Medical/Surgical History: Hypertension Seizure disorder Bipolar disorder GERD Congestive heart failure Social History: No recent alcohol Smoking Status: Heavy smoker Physical Exam: General Appearance: Alert, pleasant Eyes: Pupils equal and round, no conjunctival pallor or injection ENT, Mouth: Mucous membranes moist Neck: Normal inspection Respiratory: Lungs are clear to auscultation Cardiovascular: Regular rate and rhythm Gastrointestinal: Abdomen is soft and nontender Neurological: A&O, nonfocal exam Skin: Warm and dry Extremities: Left lower extremity-diffuse lower leg swelling, open wound left anterior ankle, without surrounding erythema warmth or tenderness Psychiatric: talkative, normal thought process Constitutional: Initial Vital Signs Temperature (C) 36.6 C 08/09/17 10:55 Heart Rate 100 08/09/17 10:55 Respiratory Rate 16 08/09/17 10:55 Blood Pressure 105/69 08/09/17 10:55 O2 Sat (%) 100 08/09/17 10:55 O2 Delivery Mode Room Air Allergies/Adverse Reactions: No Allergies [NKDA] Allergy (Verified 07/31/17 11:32) Home Medications: Medication Instructions Recorded Aspirin EC [Aspirin EC 81 mg (*)] 81 mg PO DAILY #30 tab 08/11/17 Carvedilol [Coreg (*)] 6.25 mg PO BIDMEAL #30 tab 08/11/17 Clopidogrel Bisulfate [Plavix (*)] 75 mg PO DAILY #30 tab 08/11/17 Divalproex ER [Depakote ER 250 MG 1,250 mg PO HS #75 tab 08/11/17 (*)] Famotidine [Pepcid 20 MG (*)] 20 mg PO BID #60 tab 08/11/17 Furosemide [Lasix 20 MG (*)] 20 mg PO DAILY #30 tab 08/11/17 LORazepam [Ativan (*)] 0.5 - 1 mg PO Q6HRS PRN #30 tab 08/11/17 Lisinopril [Zestril 5 mg (*)] 5 mg PO DAILY #30 tab 08/11/17 OLANZapine DISINTEGR [ZyPREXA 5 mg PO Q4H PRN #30 tab 08/11/17 ZYDIS (*)] Spironolactone [Aldactone 25 MG 25 mg PO DAILY #30 tab 08/11/17 (*)] risperiDONE [Risperdal-M 2mg ODT 2 mg SL HS #30 odt 08/11/17 (*)] Medical Decision Making - Diagnostics EKG Interpretation: EKG interpreted by me reveals NSR, rate 95, incomplete RBBB, poor R wave progression. Interpretation: abnormal EKG Imaging Results: Extremity Venous Study 08/09/17 12:17 Impression: No deep venous thrombosis left leg. Results called and discussed with LUZ HENDRICKS at 08/09/2017 13:40. Imaging: Discussed imaging studies w/ square dance caller Radiologist, I viewed and interpreted images myself ED Course/Re-evaluation: This pt presents with abnormal Chem 7 results this morning including hyponatremia and hyperkalemia. Pt is well-appearing and VS normal. stat EKG reveals no evidence of dysrhythmia or ischemia. D-dimer ordered because left lower extremity swelling. D-dimer is 1.15. Left lower extremity ultrasound ordered. 1230: Dr. Bustillos consulted, sodium 132, potassium is normal, accepts patient back to [address] [place] [address]. Likely lab error on this morning's labs. 1345: Lower extremity ultrasound read by Dr. Godfrey Zelaya is normal. Will transfer patient back to [address] [place] [address]. Differential Diagnosis: includes though not limited to hyperkalemia, dysrhythmia, symptomatic hyponatremia, seizures/confusion, DVT - Data Points Laboratory Results: Laboratory Results 08/09/17 10:55 08/09/17 10:55 Medications Given: Discontinued Medications Acetaminophen (Tylenol) 1,000 mg PO Q6 PRN PRN Reason: Pain, Mild/Fever, Can Take PO Stop: 02/05/18 22:14 Last Admin: 08/11/17 10:34 Dose: 1,000 mg Aspirin Buffered (Aspirin Ec) 81 mg PO DAILY MITCH Stop: 02/06/18 08:59 Last Admin: 08/11/17 08:35 Dose: 81 mg Carvedilol (Coreg) 6.25 mg PO BIDMEAL MITCH Stop: 02/05/18 17:59 Last Admin: 08/11/17 08:35 Dose: 6.25 mg Clopidogrel Bisulfate (Plavix) 75 mg PO DAILY MITCH Stop: 02/06/18 08:59 Last Admin: 08/11/17 08:34 Dose: 75 mg Divalproex Sodium (Depakote Er) 1,250 mg PO HS MITCH Stop: 02/05/18 20:59 Last Admin: 08/10/17 19:59 Dose: 1,250 mg Famotidine (Pepcid) 20 mg PO BID MITCH Stop: 02/05/18 20:59 Last Admin: 08/11/17 08:34 Dose: 20 mg Furosemide (Lasix) 20 mg PO DAILY MITCH Stop: 02/06/18 08:59 Last Admin: 08/11/17 08:35 Dose: 20 mg Lisinopril (Zestril) 5 mg PO DAILY MITCH Stop: 02/06/18 08:59 Last Admin: 08/11/17 08:34 Dose: 5 mg Lorazepam (Ativan) 0.5 - 1 mg PO Q6HRS PRN PRN Reason: Anxiety, Able to Take PO Stop: 02/05/18 16:23 Last Admin: 08/11/17 02:40 Dose: 1 mg Olanzapine (Zyprexa Zydis) 5 mg PO Q4H PRN PRN Reason: Agitation, Psychosis Stop: 02/05/18 16:26 Last Admin: 08/11/17 06:06 Dose: 5 mg Risperidone (Risperdal-M) 2 mg SL HS MITCH Stop: 02/05/18 20:59 Last Admin: 08/10/17 20:01 Dose: 2 mg Spironolactone (Aldactone) 25 mg PO DAILY MITCH Stop: 02/06/18 08:59 Last Admin: 08/11/17 08:35 Dose: 25 mg Departure - Departure Disposition: [facility] IP Clinical Impression: Hyponatremia, Bipolar I disorder, most recent episode manic, severe with psychotic features Condition: Fair
--- NOTE | 2017-08-09 11:56 | CPEKG ---
Heart Rate: 95 RR Interval: 632 P-R Interval: 148 QRSD Interval: 120 QT Interval: 400 QTC Interval: 503 P [place]: 67 QRS [place]: -57 T Wave [place]: 126 EKG Severity - ABNORMAL ECG - EKG Impression: SINUS RHYTHM EKG Impression: PROBABLE LEFT ATRIAL ABNORMALITY EKG Impression: INCOMPLETE RBBB AND LAFB EKG Impression: ANTERIOR INFARCT, AGE INDETERMINATE Electronically Signed By: Jenny Ho 09-Aug-2017 14:56:18
[2017-08-09] MEDS ORDERED: MAGNESIUM HYDROXIDE 30 ML UDCUP PO PRN (16:24)
[2017-08-09] MEDS: CARVEDILOL 6.25 MG TAB PO SCH (18:02)
[2017-08-09] MEDS: RISPERIDONE 2 MG ODT TAB SL SCH (19:55)
[2017-08-09] MEDS: DIVALPROEX ER 250 MG TAB PO SCH (19:55)
[2017-08-09] MEDS: FAMOTIDINE 20 MG TAB PO SCH (19:55)
[2017-08-09] MEDS: ACETAMINOPHEN 500 MG TAB PO PRN (22:33)
[2017-08-09] MEDS: LORazepam 0.5 MG TAB PO PRN (22:36)
[2017-08-10] MEDS: OLANZapine DISINTEGR 5 MG TAB PO PRN ×2 (00:51→21:01)
[2017-08-10] MEDS: LORazepam 0.5 MG TAB PO PRN ×2 (04:45→21:01)
[2017-08-10] MEDS: SPIRONOLACTONE 25 MG TAB PO SCH (08:56)
[2017-08-10] MEDS: ASPIRIN EC 81 MG TAB PO SCH (08:56)
[2017-08-10] MEDS: LISINOPRIL 5 MG TAB PO SCH (08:56)
[2017-08-10] MEDS: CARVEDILOL 6.25 MG TAB PO SCH ×2 (08:56→17:59)
[2017-08-10] MEDS: FUROSEMIDE 20 MG TAB PO SCH (08:56)
[2017-08-10] MEDS: CLOPIDOGREL BISULFATE 75 MG TAB PO SCH (08:56)
[2017-08-10] MEDS: FAMOTIDINE 20 MG TAB PO SCH ×2 (08:56→20:00)
[2017-08-10] MEDS: ACETAMINOPHEN 500 MG TAB PO PRN ×2 (10:32→19:57)
--- NOTE | 2017-08-10 14:15 | SOAPPROG ---
SOAP Progress Note Assessment/Plan: Assessment: Plan: 08/10/17 14:13 Bipolar: Stabilizing. Continues to voice occasional paranoid thoughts, but this is no longer influencing her behaviors. Compliant with all treatments. No aggression. Medically stable. Looks appropriate to return to SNF. CCM. Subjective: Pt returns from ED after being sent out for electrolyte imbalance. Labs look better, wounds are healing. Ultrasound study showed no DVT despite an elevated D-dimer. Pt remains unhappy about being in the hospital due to personal comfort issues. SNF hesitant to take her back despite stable behaviors. Slept >6 hours again last night. Tolerating Risperdal well. Objective: Vital Signs Temp Pulse Resp BP Pulse Ox 36.2 C 115 H 12 105/65 100 08/09/17 21:18 08/10/17 08:50 08/10/17 08:50 08/10/17 08:50 08/10/17 08:50 - Time Spent With Patient Time Spent With Patient: 25" ICD10 Worksheet Patient Problems: Problems Problem Status Onset Bipolar I disorder, most recent episode manic, severe with psychotic features Acute Hyponatremia Acute
[2017-08-10] MEDS: DIVALPROEX ER 250 MG TAB PO SCH (19:59)
[2017-08-10] MEDS: RISPERIDONE 2 MG ODT TAB SL SCH (20:01)
[2017-08-11] MEDS: OLANZapine DISINTEGR 5 MG TAB PO PRN ×2 (01:19→06:06)
[2017-08-11] MEDS: ACETAMINOPHEN 500 MG TAB PO PRN ×2 (02:39→10:34)
[2017-08-11] MEDS: LORazepam 0.5 MG TAB PO PRN (02:40)
[2017-08-11 06:40] VITALS: BP 114/62
[2017-08-11] MEDS: FAMOTIDINE 20 MG TAB PO SCH (08:34)
[2017-08-11] MEDS: CLOPIDOGREL BISULFATE 75 MG TAB PO SCH (08:34)
[2017-08-11] MEDS: LISINOPRIL 5 MG TAB PO SCH (08:34)
[2017-08-11] MEDS: CARVEDILOL 6.25 MG TAB PO SCH (08:35)
[2017-08-11] MEDS: ASPIRIN EC 81 MG TAB PO SCH (08:35)
[2017-08-11] MEDS: FUROSEMIDE 20 MG TAB PO SCH (08:35)
[2017-08-11] MEDS: SPIRONOLACTONE 25 MG TAB PO SCH (08:35)
--- NOTE | 2017-08-11 16:12 | BDS ---
[f rep st] BEHAVIORAL HEALTH DISCHARGE SUMMARY REASON FOR ADMISSION: The patient is a 66-year-old female with bipolar disorder, congestive heart fa ilure, and hypertension. She was transferred from [address] [place] [address] with abnormal labs. She originally presen marguer[facility] to [facility] and was admitted to [address] [place] [address] for inpatient mental health care. On the morning of 08/09/2017, labs revealed hyponatremia and hyperkalemia, and she was sent to the emergenc y department to be admitted to the med/surg floor. She was returned to [address] [place] [address] after getting a adithya p for hyponatremia and getting a lower extremity ultrasound. ADMITTING DIAGNOSIS: Bipolar disorder, type 1; most recent episode manic. ADMITTING PHYSICAL EXAMINATION: There was no physical examination done on this admission because the patient had been sent from [address] [place] [address] to the emergency department and then returned the same Day. She was given a workup by Ronda Ho in the emergency department for hyponatremia and hyperkalemia. LABORATORY DATA: On 08/09/2017: White cell count 9.31, hemoglobin 9.7, hematocrit 29.7 , platelet c ount 369. Her D-dimer level was 1.15. Sodium was 132, potassium 5.2, chloride 98, carbon dioxide 23 , BUN 25, creatinine 0.8, glucose 102, calcium was 9.3. Valproic acid level was 62. HOSPITAL COURSE: Patient was evaluated in the ED for electrolyte imbalance. Patient had an elevated D-dimer level, but ultrasound in the ED showed no DVT. She was returned to the inpatient [facility] Unit medically stable. The plan for discharge was for the patient to return to [facility]. CONDITION AT DISCHARGE: Patient was stable. Her affect was euthymic. She was voicing no thoughts, plans, or intent to hurt herself or anyone else. She was not actively psychotic at the time of disch arge. She was also compliant with medications, and her behavior was appropriate on the unit. DISCHARGE MEDICATIONS: Patient was discharged with prescriptions for the following medications: Asp irin EC 81 mg 1 tab p.o. daily, Coreg 6.25 mg p.o. b.i.d., Plavix 75 mg p.o. daily, Depakote ER 1250 mg p.o. q.h.s., Pepcid 20 mg p.o. b.i.d., Lasix 20 mg p.o. daily, lisinopril 5 mg p.o. daily, Ativan 0.5 to 1 mg p.o. q.6 hours p.r.n. for anxiety. Zyprexa Zydis 5 mg p.o. q.4 hours p.r.n. for agitati on and psychosis. Risperdal M-tab 2 mg ODT sublingual 1 tab at h.s., spironolactone 25 mg p.o. daily . DISCHARGE DIAGNOSES: 1. Bipolar disorder, most recent episode manic. 2. Psychosocial stressors include electrolyte imbalance, elevated D-dimers (no evidence of DVT on ul trasound), chronic illness, marginal supports long-term correction placement. DISPOSITION: Patient left the hospital to return to [facility]. Followup wi ll be with her outpatient providers through [facility]. LEGAL COURSE: Patient was voluntary at the time of discharge. /[id number]/MODL
== END 2017-08-11 11:56 | DRG 641 ==
LOC: EDUNIT# → BBEH 15:50
PROVIDERS: ADMIT Psychiatry & Neurology Psychiatry; ATTEND Psychiatry & Neurology Psychiatry
DX: E87.1 Hypo-osmolality and hyponatremia (principal); F31.10 Bipolar disorder, current episode manic without psychotic features, unspecified; I11.0 Hypertensive heart disease with heart failure; I50.9 Heart failure, unspecified; E87.5 Hyperkalemia; K21.9 Gastro-esophageal reflux disease without esophagitis; G40.409 Other generalized epilepsy and epileptic syndromes, not intractable, without status epilepticus; Z72.0 Tobacco use